=== PATIENT | female | born 1990 | race Asian ===

== ENCOUNTER 2023-02-02 01:18 | Inpatient (IN) | payer OTHER ==
[2023-02-02 01:46] VITALS: BMI 28.6
[2023-02-02 02:14] LABS: Fetal Membranes Rupture RUPTURE DETECTED (No Rupture)
[2023-02-02] MEDS ORDERED: Acetaminophen 500 MG TAB PO PRN (02:19)
[2023-02-02] MEDS ORDERED: Ondansetron PF 4 MG/2 ML Vial IVP PRN ×3 (02:19→14:45)
[2023-02-02] MEDS ORDERED: Butorphanol Tartrate 1 MG/ML VIAL SLOW IVP PRN (02:19)
[2023-02-02] MEDS ORDERED: Lidocaine 1% (PF) 30 ML VIAL SC PRN (02:19)
[2023-02-02] MEDS ORDERED: hydrALAZINE 20 MG/ML VIAL SLOW IVP PRN ×2 (02:19→14:45)
[2023-02-02] MEDS ORDERED: Promethazine HCl 25 MG/ML VIAL IM PRN ×2 (02:19→07:44)
[2023-02-02] MEDS ORDERED: Lactated Ringer's 1,000 ML IV SCH (02:30)
[2023-02-02] MEDS ORDERED: Penicillin G Potassium 5 MILL.UNITS in Sodium Chloride 0.9% 100 ML IVPB SCH (02:30)
[2023-02-02] MEDS ORDERED: NS w/ Oxytocin 30 units 500 ML IV SCH ×2 (02:30→14:45)
[2023-02-02] MEDS ORDERED: Misoprostol 100 MCG TAB PO SCH (03:00)
[2023-02-02 03:48] LABS: Hematocrit 37.5 % (34.9-44.5); Hemoglobin 12.5 g/dL (12.0-15.5); Mean Corpuscular HGB CONC 33.3 g/dL (32.0-36.0); Mean Corpuscular Hemoglobin 30.3 pg (27.0-33.0); Mean Corpuscular Volume 90.8 fl (81.6-98.3); Mean Platelet Volume 11.8 fl (7.4-10.4); Platelet Count 240 10x3/uL (150-450); RBC Distribution Width 13.7 % (11.5-14.5); Red Blood Cell (RBC) Count 4.13 10x6/uL (3.90-5.03); White Blood Cell (WBC) Count 9.8 10x3/uL (3.5-10.5)
[2023-02-02 04:19] LABS: HBSAg Index 0.15 S/CO (0-0.99); Hep B Surf Ag - L&D Non-Reactive S/CO (NonReactive); Syphilis Antibody Nonreactive (Nonreactive); Syphilis Antibody Index 0.05 S/CO (<1.00 Non-Reactive)
[2023-02-02] MEDS ORDERED: CEFAZOLIN 2 GM VIAL ONE (06:02)
[2023-02-02] MEDS ORDERED: Azithromycin 500 MG VIAL ONE (06:02)
[2023-02-02] MEDS ORDERED: Penicillin G 2.5 MILL.units 2.5 MILL.UNITS in Premix Bag 1 BAG IVPB SCH (06:30)
[2023-02-02] MEDS ORDERED: fentaNYL 50 mcg/mL 1 mL Vial ONE (06:39)
[2023-02-02] MEDS ORDERED: Morphine PF 10 MG/10 ML VIAL ONE (06:39)
[2023-02-02] MEDS ORDERED: Phenylephrine 40 MG/NS 250 ML 250 ML ONE (06:41)
[2023-02-02] MEDS ORDERED: Ondansetron PF 4 MG/2 ML Vial ONE (07:02)
[2023-02-02] MEDS ORDERED: Dexamethasone 4 mg/ml Vial ONE (07:02)
[2023-02-02] MEDS ORDERED: Oxytocin 10 UNITS/ML VIAL ONE (07:02)
[2023-02-02] MEDS ORDERED: Ketorolac Tromethamine 30 MG/ML VIAL ONE (07:02)
[2023-02-02] MEDS ORDERED: Promethazine HCl 25 MG/ML VIAL ONE (07:31)
[2023-02-02] MEDS ORDERED: Fentanyl 50 MCG/1 ML VIAL SLOW IVP PRN (07:44)
[2023-02-02] MEDS ORDERED: Naloxone HCl 0.4 mg/ml Vial IVP PRN ×2 (07:44)
[2023-02-02] MEDS ORDERED: diphenhydrAMINE 50 MG/ML VIAL IVP PRN (07:44)
[2023-02-02] MEDS ORDERED: Meperidine HCl/PF 25 MG/ML VIAL SLOW IVP PRN (07:44)
[2023-02-02] MEDS ORDERED: L&D-HYDROmorphone 0.5 MG/0.5 ML SYRINGE SLOW IVP PRN (07:44)
[2023-02-02] MEDS ORDERED: Promethazine HCl 25 MG SUPP PR PRN (07:44)
[2023-02-02] MEDS ORDERED: Moisturizing Cream (Eucerin) 113 GM JAR TOP PRN (07:44)
[2023-02-02] MEDS ORDERED: Naloxone HCl 0.4 mg/ml Vial IV PRN (07:44)
[2023-02-02] MEDS ORDERED: Ondansetron HCl/PF 4 MG/2 ML Vial IVP PRN (07:44)
[2023-02-02] MEDS ORDERED: Ketorolac Tromethamine 30 MG/ML VIAL IVP PRN (07:44)
[2023-02-02] MEDS ORDERED: Ketorolac Tromethamine 30 MG/ML VIAL IVP SCH (07:45)
[2023-02-02] MEDS ORDERED: Communication Order-Pharmacy FS SCH (07:45)
[2023-02-02] MEDS ORDERED: Bisacodyl 10 MG SUPP PR PRN (14:45)
[2023-02-02] MEDS ORDERED: Lanolin Ointment 7 GM TUBE TOP PRN (14:45)
[2023-02-02] MEDS ORDERED: diphenhydrAMINE 25 MG CAP PO PRN (14:45)
[2023-02-02] MEDS ORDERED: Boostrix 0.5 ML (Tdap) VIAL (>/=7 yrs of age) IM ONE (14:45)
[2023-02-02] MEDS ORDERED: Ferrous Sulfate 325 MG TAB PO SCH (15:15)
[2023-02-02] MEDS ORDERED: Docusate 100 MG CAP PO SCH (15:15)
[2023-02-02] MEDS ORDERED: Prenatal Vitamin 1 TAB PO SCH (15:15)
[2023-02-02] MEDS: Ketorolac Tromethamine 30 MG/ML VIAL IVP SCH ×2 (20:53→21:24)
[2023-02-02] MEDS: Docusate 100 MG CAP PO SCH (21:24)
[2023-02-02] MEDS: Ferrous Sulfate 325 MG TAB PO SCH (21:24)
[2023-02-02] MEDS: Simethicone Chewable 80 MG TAB PO PRN (21:24)
[2023-02-02] MEDS ORDERED: HYDROcodone/Acetaminophen 5/325 mg Tablet PO PRN ×2 (21:45)
[2023-02-03 04:27] LABS: Hemoglobin 11.2 g/dL (12.0-15.5); Mean Corpuscular HGB CONC 33.9 g/dL (32.0-36.0); Mean Corpuscular Hemoglobin 30.4 pg (27.0-33.0); Mean Corpuscular Volume 89.7 fl (81.6-98.3); Mean Platelet Volume 12.3 fl (7.4-10.4); Platelet Count 192 10x3/uL (150-450); RBC Distribution Width 13.6 % (11.5-14.5); Red Blood Cell (RBC) Count 3.68 10x6/uL (3.90-5.03); White Blood Cell (WBC) Count 13.3 10x3/uL (3.5-10.5)
[2023-02-03] MEDS: Simethicone Chewable 80 MG TAB PO PRN (05:26)
[2023-02-03] MEDS: Ketorolac Tromethamine 30 MG/ML VIAL IVP SCH ×2 (05:27→14:00)
[2023-02-03] MEDS: Ferrous Sulfate 325 MG TAB PO SCH ×2 (08:15→21:57)
[2023-02-03] MEDS: Docusate 100 MG CAP PO SCH ×2 (13:06→22:02)
[2023-02-03] MEDS: Ibuprofen 800 MG TAB PO SCH ×2 (13:41→22:02)
[2023-02-03] MEDS: Prenatal Vitamin 1 TAB PO SCH (14:00)
[2023-02-04] MEDS: Ibuprofen 800 MG TAB PO SCH ×2 (05:58→14:15)
[2023-02-04] MEDS: Prenatal Vitamin 1 TAB PO SCH (08:48)
[2023-02-04] MEDS: Docusate 100 MG CAP PO SCH (08:48)
[2023-02-04] MEDS: Ferrous Sulfate 325 MG TAB PO SCH ×2 (08:48→19:26)
[2023-02-05] MEDS: Ibuprofen 800 MG TAB PO SCH ×3 (00:06→15:04)
[2023-02-05] MEDS: Docusate 100 MG CAP PO SCH ×2 (00:06→08:27)
[2023-02-05 07:43] VITALS: BP 117/83; TEMP 97.7
[2023-02-05] MEDS: Prenatal Vitamin 1 TAB PO SCH (08:27)
[2023-02-05] MEDS: Ferrous Sulfate 325 MG TAB PO SCH (09:09)
== END 2023-02-05 18:30 | disposition home or self-care (01) | DRG 788 ==
LOC: CSHLD/OP 01:18 → CSHLD 03:45 → CSHPED 02-03 13:29
PROVIDERS: ADMIT Family Medicine; ATTEND Family Medicine
PROC: 10D00Z1 Extraction of Products of Conception, Low, Open Approach (ICD-10-PCS; principal; 2023-02-02)
PROC: 3E0P7VZ Introduction of Hormone into Female Reproductive, Via Natural or Artificial Opening (ICD-10-PCS; 2023-02-02)
DX: O42.02 Full-term premature rupture of membranes, onset of labor within 24 hours of rupture (principal); O99.824 Streptococcus B carrier state complicating childbirth; O76 Abnormality in fetal heart rate and rhythm complicating labor and delivery; Z3A.38 38 weeks gestation of pregnancy; Z37.0 Single live birth
CPT/HCPCS: 36415; 51702; 84112; 85027; 86780; 86850; 86900; 86901; 87340; 99285; J1100; J1885; J2274; J2405; J2540; J2550; J2590; J3010; J3490